=== PATIENT | female | born 1985 | race Caucasian/White ===

== ENCOUNTER → 2021-03-20 | Outpatient (CLI) | payer OTHER ==
[~2021-03-20] MED LIST: ALBIPROI INH; ALBU.083IS IH; ALBU8HFA2 INH; ALBU90OI; ALBU90OI INH; ALBU90OI6 INH; ALBUIS IH; AMOX500 PO; AZIT250 PO; AZIT500 PO; DOXY100 PO; FLUO.05TC TOP; FLUSAL1005 IH; FLUSAL2505 IH; GUAI120S1 PO; HYDACE5 PO; HYDGUAL120 PO; METR500 PO; MONT10T; MONT10T PO; MULVITMINE; MULVITMINE PO; NEBULIZ; OXYACE5T PO; PERM5TC TOP; PRED10 PO; PRED20; PRED20 PO; PROCODE120 PO; PROM25 PO; RXALBOI INH; RXCODGUASY PO; RXHYDGUAS PO; RXPRED10 PO; SPACER IH; SULTRIDS PO; TERB24TC TOP; TERB250 PO; TRIAOI IH; [UNRECOGNIZED DRUG - REMARK]
[2021-03-22 23:09] LABS: CHLAMYDIA TRACHOMATIS, NAA Negative (Negative)
== END | disposition home or self-care (01) ==
LOC: LAB SHORT 19:45 → LAB 19:45
PROVIDERS: Physician Assistant Medical
DX: Z72.51 High risk heterosexual behavior (principal)
CPT/HCPCS: 87086; 87491; 87591

== ENCOUNTER 2021-07-20 01:12 | Emergency (ER) | payer OTHER ==
[~2021-07-20] VITALS: Ht 154.9 cm; Wt 56.7 kg
== END 2021-07-20 04:30 | disposition left against medical advice (07) ==
LOC: ER 01:12
DX: Z53.21 Procedure and treatment not carried out due to patient leaving prior to being seen by health care provider (principal)
CPT/HCPCS: 87081; 87430

== ENCOUNTER → 2022-09-05 | Outpatient (CLI) | payer OTHER ==
[2022-09-06 13:41] LABS: Candida species (DNA Probe) Negative (NEGATIVE); G. vaginalis (DNA Probe) Positive (NEGATIVE); T. vaginalis (DNA Probe) Negative (NEGATIVE)
== END | disposition home or self-care (01) ==
LOC: LAB 17:42 → LAB SHORT 17:42
PROVIDERS: Emergency Medicine
DX: Z72.51 High risk heterosexual behavior (principal)
CPT/HCPCS: 87480; 87510; 87660

== ENCOUNTER 2025-01-23 15:04 | Emergency (ER) | payer OTHER ==
[~2025-01-23] VITALS: Ht 162.6 cm; Wt 53.1 kg
[2025-01-23 15:34] VITALS: BP 97/82
== END 2025-01-23 17:56 | disposition home or self-care (01) ==
LOC: ER 15:04
DX: T19.2XXA Foreign body in vulva and vagina, initial encounter (principal); J45.909 Unspecified asthma, uncomplicated; F17.200 Nicotine dependence, unspecified, uncomplicated; Z79.51 Long term (current) use of inhaled steroids; Z79.899 Other long term (current) drug therapy; W44.C1XA Sharp glass entering into or through a natural orifice, initial encounter; W44.E9XA Other non-magnetic metal objects entering into or through a natural orifice, initial encounter
CPT/HCPCS: 72170; 99283-25

== ENCOUNTER → 2025-03-10 | Outpatient (CLI) | payer OTHER ==
[2025-03-15 18:38] LABS: CALPROTECTIN,FECAL 8 ug/g (<=49)
== END | disposition home or self-care (01) ==
LOC: LAB SHORT 02:00 → LAB 02:00
PROVIDERS: Physician Assistant
DX: R19.5 Other fecal abnormalities (principal); K92.1 Melena; R10.9 Unspecified abdominal pain
CPT/HCPCS: 83993

== ENCOUNTER 2025-04-22 20:30 | Emergency (ER) | payer OTHER ==
[~2025-04-22] VITALS: Ht 154.9 cm; Wt 59.0 kg
[2025-04-22 21:55] LABS: Source, Urine Clean Catch
[2025-04-22 22:05] LABS: Bilirubin, Urine Neg (Neg); Glucose Qualitative, Urine Neg (Neg); Ketones, Urine Neg (Neg); Leukocyte Esterase, Urine 3+ (Neg); Protein, Urine 3+ (Neg); Specific Gravity, Urine 1.025 (1.003-1.022); Urobilinogen, Urine NORM (Normal)
[2025-04-22 22:14] LABS: Color, Urine Yellow (P-Yellow)
[2025-04-22 22:15] LABS: Red Blood Cells, Urine 25-50 /hpf (0-2)
[2025-04-22 22:18] LABS: White Blood Cells, Urine 50-100 /hpf (0-5)
[2025-04-23] MEDS ORDERED: DiphenhydrAMINE HCL/Zinc Acet Cream TOP ONE (00:20)
[2025-04-23] MEDS ORDERED: Dexamethasone Sod Phos 10 MG/ML 1ML VIAL IM ONE (00:30)
[2025-04-23] MEDS ORDERED: CEFP200 PO (00:32)
[2025-04-23] MEDS ORDERED: HYDHCL25 PO (00:32)
[2025-04-23] MEDS ORDERED: HYDROCORTISONE30 GM EXT (00:32)
[2025-04-23 00:42] VITALS: BP 122/74
== END 2025-04-23 00:43 | disposition home or self-care (01) ==
LOC: ER 20:30
PROVIDERS: Student in an Organized Health Care Education/Training Program
DX: N39.0 Urinary tract infection, site not specified (principal); L30.9 Dermatitis, unspecified; J45.909 Unspecified asthma, uncomplicated; Z79.899 Other long term (current) drug therapy
CPT/HCPCS: 81001; 81025; 87086; 99283; A9270; J1100

== ENCOUNTER 2025-05-09 04:38 | Emergency (ER) | payer OTHER ==
[~2025-05-09] VITALS: Ht 154.9 cm; Wt 54.4 kg
[~2025-05-09 04:38] MED LIST changes: +CEFP200 PO; +HYDHCL25 PO; +HYDROCORTISONE30 GM EXT
[2025-05-09 05:00] VITALS: BP 137/87
[2025-05-09] MEDS ORDERED: Triamcinolone Inj Susp 40 MG / ML 1ML Vial IM ONE (06:15)
[2025-05-09] MEDS ORDERED: PERM5TC TOP (06:21)
[2025-05-09] MEDS ORDERED: PRED20 PO (06:21)
== END 2025-05-09 06:34 | disposition home or self-care (01) ==
LOC: ER 04:38
DX: B86 Scabies (principal); L29.9 Pruritus, unspecified; J45.909 Unspecified asthma, uncomplicated; F17.210 Nicotine dependence, cigarettes, uncomplicated; Z79.899 Other long term (current) drug therapy
CPT/HCPCS: 96372; 99282-25; J3301